=== PATIENT | male | born 1975 | race African-American/Black ===

== ENCOUNTER 2016-07-13 12:11 | Outpatient (CLI) | payer OTHER ==
[2016-07-13 12:57] LABS: #Basophils 0.1 thou/uL (0.0-0.2); #Eosinphils 0.2 thou/uL (0.0-0.7); #Lymphocytes 2.1 thou/uL (1.20-3.40); #Monocytes 0.7 thou/uL (0.11-0.59); #Neutrophils 3.4 thou/uL (1.40-6.50); %Basophils 1.9 % (0.0-1.0); %Eosinophils 2.9 % (0.0-10.0); %Lymphocytes 31.9 % (21.0-51.0); %Monocytes 10.9 % (0.0-10.0); Hematocrit 42.8 % (42.0-52.0); Mean Platelet Volume 7.2 fL (7.4-10.4); Red Blood Cell (RBC) Count 4.87 mill/uL (4.70-6.10); White Blood Cell (WBC) Count 6.5 thou/uL (4.8-10.8)
[2016-07-13 13:05] LABS: ALT (SGPT) 40 U/L (0-55); AST (SGOT) 17 U/L (5-34); Alkaline Phosphatase 43 U/L (40-150); Anion Gap 16 mmol/L (10-20); BUN (Urea Nitrogen) 15 mg/dL (8.9-20.6); Bilirubin, Direct 0.1 mg/dL (0.1-0.3); Bilirubin, Total 0.3 mg/dL (0.2-1.2); Calc. Creatinine Clearance 0 mL/min (70-130); Calcium 9.9 mg/dL (7.8-10.44); Carbon Dioxide 26 mmol/L (22-29); Chloride 100 mmol/L (98-107); Estimated GFR-MDRD 84; LDL Cholesterol, Calculated 96 mg/dL; Protein, Total 7.2 g/dL (6.0-8.3)
[2016-07-13 13:41] LABS: Hemoglobin A1c 11.3 % (4.0-6.0)
== END 2016-07-13 12:12 | disposition home or self-care (01) ==
LOC: NAVSJIPCSP 12:11
PROVIDERS: ATTEND Family Medicine
DX: N45.1 Epididymitis (principal); I10 Essential (primary) hypertension; E11.9 Type 2 diabetes mellitus without complications; Z79.899 Other long term (current) drug therapy
CPT/HCPCS: 36415; 80048; 80061; 80076; 83036; 84443; 85025